=== PATIENT | female | born 1990 | race African-American/Black ===

== ENCOUNTER 2017-01-05 16:06 | Emergency (ER) | payer OTHER ==
[~2017-01-05] VITALS: Ht 149.9 cm; Wt 68.0 kg
[~2017-01-05 16:06] MED LIST: OFLO5DRO OD
[2017-01-05 16:35] VITALS: BP 142/105
--- NOTE | 2017-01-05 17:32 | PHYS DOC ---
Past Medical History Past Medical History: No Pertinent History, Arrhythmia Past Surgical History: , Tubal ligation Additional Past Surgical Histo: c section x4 Smoking: Less than 1pk/day Alcohol Use: None Drug Use: None Adult General Chief Complaint Chief Complaint: COUGH HPI HPI Patient is a 26 year old female who presents with sore throat for 1 week. She has also had nonproductive cough, nasal congestion, and subjective fever. She denies ear pain, shortness of breath, nausea, or vomiting. The patient also complains of pain in the right wrist starting last night. She denies any known injury. She does a lot of repetitive motions at her job. She does not have a PCP. Review of Systems Review of Systems Constitutional: Reports subjective fever. Eyes: Denies change in visual acuity, redness, or eye pain. [] HENT: Denies ear pain. Reports sore throat and nasal congestion. Respiratory: Denies shortness of breath. Reports nonproductive cough. Cardiovascular: Denies chest pain, palpitations or edema. [] GI: Denies abdominal pain, nausea, vomiting, bloody stools or diarrhea. [] Musculoskeletal: Denies back pain. Reports right wrist pain. Integument: Denies rash or skin lesions. [] Neurologic: Denies headache, focal weakness or sensory changes. [] Allergies Allergies Allergies Coded Allergies Type Severity Reaction Last Updated Verified No Known Drug Allergies 12/02/13 No Physical Exam Physical Exam Constitutional: Well developed, well nourished, no acute distress, non-toxic appearance. [] HENT: Normocephalic, atraumatic, bilateral external ears normal, oropharynx moist, no oral exudates, nose normal. Bilateral TMs without erythema or bulging. There is mild posterior pharyngeal erythema with mild bilateral tonsillar edema. There is no peritonsillar abscess or uvular deviation. Bilateral nasal turbinates are swollen and erythematous. Eyes: PERRLA, EOMI, conjunctiva normal, no discharge. [] Neck: Normal range of motion, no tenderness, supple, no stridor. [] Cardiovascular: Heart rate regular rhythm, no murmur [] Lungs & Thorax: There are mild rhonchi in the left lung base without wheezes. No respiratory distress. Skin: Warm, dry, no erythema, no rash. [] Extremities: Right distal ulnar tenderness, no cyanosis, no clubbing, ROM intact , no edema. 2+ radial and ulnar pulses. Less than 2 second capillary refill. Light touch sensation intact distally. Neurologic: Alert and oriented X 3, normal motor function, normal sensory function, no focal deficits noted. [] Psychologic: Affect normal, judgement normal, mood normal. [] Current Patient Data Vital Signs Vital Signs Date Time Temp Pulse Resp B/P Pulse Ox O2 Delivery O2 Flow Rate FiO2 01/05/17 16:35 98.3 83 20 97 Room Air 98.3 Lab Values Laboratory Tests Test 01/05/17 14:43 01/05/17 17:42 Influenza Type A Antigen Negative (NEGATIVE) Influenza Type B Antigen Negative (NEGATIVE) POC Urine HCG, Qualitative Hcg negative (Negative) EKG EKG [] Radiology/Procedures Radiology/Procedures PA and lateral chest xray reviewed and interpreted by myself with Dr. Cutler. There are no focal infiltrates to suggest pneumonia. 3 view xray of the right wrist reviewed and interpreted by myself with Dr. Cutler. There are no acute fractures or dislocations. Course & Med Decision Making Course & Med Decision Making Pertinent Labs and Imaging studies reviewed. (See chart for details) The patient presents with cough and URI symptoms for 1 week and atraumatic right wrist pain starting yesterday. Flu and strep swabs were negative. Chest x- ray does not show pneumonia. There is no fracture or dislocation seen on the right wrist x-ray patient is discharged home with a Velcro wrist brace. She is given prescriptions for albuterol inhaler, prednisolone, and Phenergan with codeine cough syrup. Return precautions were discussed. She verbalizes understanding and agrees with plan. Dragon Disclaimer Dragon Disclaimer This electronic medical record was generated, in whole or in part, using a voice recognition dictation system. Departure Departure Impression: Primary Impression: Bronchitis Additional Impression: Right wrist sprain Disposition: 01 HOME, SELF-CARE Condition: STABLE Referrals: DENYS GUTIERREZ II, MD Patient Instructions: Acute Bronchitis, [id number], Wrist Pain, [id number] Additional Instructions: Your flu and strep swabs were negative. You do not appear to have pneumonia. There are no broken bones on your wrist x-ray. Please wear the provided wrist brace to help decrease movement of your wrist to help her pain. Please complete all the prescribed steroid medication, even if you're feeling better. Please use the prescribed inhaler as needed for cough or shortness of breath. Do not use more often than directed. Do not drive or operate heavy machinery while taking cough syrup medication. Please follow-up with the orthopedic doctor listed below if your wrist pain continues. Return to the emergency department if you have any new or concerning symptoms. Scripts Promethazine Hcl/Codeine (Promethazine-Codeine Syrup)118 Ml Syrup5 Ml PO Q4- 6HRS #120 ML Prov:CLAYTON GUZMAN 01/05/17 Prednisolone Sod Phosphate (Prednisolone Sodium Phosphate)15 Mg/5 Ml Solution5 Ml PO TID 5 Days Prov:CLAYTON GUZMAN 01/05/17 Albuterol Sulfate (Proair Hfa Inhaler)8.5 Gm Hfa.[id number].[id number] Puff INH Q4HRS PRN SHORTNESS OF BREATH #1 INHALER Prov:CLAYTON GUZMAN 01/05/17 Problem Qualifiers Additional Impression: Right wrist sprain Encounter type: initial encounter Qualified Code: S63.501A - Unspecified sprain of right wrist, initial encounter CLAYTON GUZMAN Jan 05, 2017 17:32
[2017-01-05 17:42] LABS: OBC FLU VALID
[2017-01-05] MEDS ORDERED: PROM118S2 PO (18:17)
[2017-01-05] MEDS ORDERED: PROAIR HFA8.5 GM INH (18:17)
[2017-01-05] MEDS ORDERED: PRED15SO3 PO (18:17)
[2017-01-06 07:13] LABS: NEGATIVE OBC STREP NEG; POSITIVE OBC STREP POS
--- NOTE | 2017-01-06 08:31 | RAD ---
Right wrist, 3 views, 01/05/2017: History: Pain and swelling No fracture or or dislocation is evident. No destructive bony lesion is seen. There appears to be mild soft tissue swelling about the wrist. IMPRESSION: No acute bony abnormality is detected.
--- NOTE | 2017-01-06 08:32 | RAD ---
Chest, 2 views, 01/05/2017: History: Cough, fever, shortness of breath The heart size and pulmonary vascularity are normal. No pulmonary infiltrates are seen. There is no evidence of pleural fluid. IMPRESSION: No acute cardiopulmonary abnormality is detected.
== END 2017-01-05 18:25 | disposition home or self-care (01) ==
LOC: ER 16:06
DX: J40 Bronchitis, not specified as acute or chronic (principal); S63.501A Unspecified sprain of right wrist, initial encounter; F17.200 Nicotine dependence, unspecified, uncomplicated; X58.XXXA Exposure to other specified factors, initial encounter; Y93.89 Activity, other specified; Y92.89 Other specified places as the place of occurrence of the external cause; Y99.8 Other external cause status
CPT/HCPCS: 29125; 71020; 73110; 81025; 87070; 87804; 87880; 99285-25

== ENCOUNTER 2017-10-10 15:49 | Emergency (ER) | payer SELFPAY ==
[~2017-10-10] VITALS: Ht 149.9 cm; Wt 72.6 kg
[~2017-10-10 15:49] MED LIST changes: +PRED15SO3 PO; +PROAIR HFA8.5 GM INH; +PROM118S2 PO
[2017-10-10 15:55] VITALS: BP 158/106
[2017-10-10] MEDS: FLUORESCEIN OPHTH TEST STRIP. OS ONE (16:31)
[2017-10-10] MEDS: TETRACAINE 0.5% OPHTH SOLUTION 4ML BOTTLE. OS ONE (16:32)
[2017-10-10] MEDS ORDERED: TOBR5DRO2 OS (16:49)
--- NOTE | 2017-10-10 17:34 | PHYS DOC ---
Past Medical History Past Medical History: Arrhythmia Past Surgical History: , Tubal ligation Additional Past Surgical Histo: c section x4 Alcohol Use: None Drug Use: None Adult General Chief Complaint Chief Complaint: EYE PROBLEMS HPI HPI Patient is a 27 year old female who presents with erythema, itching and pain to the left eye. She states that it is sensitive to light. It is watering profusely and she states that she did have some discharge to the eye. 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 Review of Systems Review of Systems Constitutional: Denies fever or chills [] Eyes: See history of present illness HENT: Denies nasal congestion or sore throat [] Respiratory: Denies cough or shortness of breath [] Cardiovascular: No additional information not addressed in HPI [] Integument: Denies rash or skin lesions [] Neurologic: Denies headache, focal weakness or sensory changes [] All other systems were reviewed and found to be within normal limits, except as documented in this note. Current Medications Current Medications Current Medications Medications (Trade) Dose Ordered Sig/Yazmin Start Time Stop Time Status Last Admin Dose Admin Fluorescein Sodium (Ful-Kanika) 1 strip 1X ONCE 10/10/17 16:30 10/10/17 16:31 DC 10/10/17 16:31 1 STRIP Tetracaine HCl (Tetracaine) 1 drop 1X ONCE 10/10/17 16:30 10/10/17 16:31 DC 10/10/17 16:32 1 DROP Allergies Allergies Allergies Coded Allergies Type Severity Reaction Last Updated Verified No Known Drug Allergies 12/02/13 No Physical Exam Physical Exam Constitutional: Well developed, well nourished, no acute distress, non-toxic appearance. [] HENT: Normocephalic, atraumatic, bilateral external ears normal, oropharynx moist, no oral exudates, nose normal. [] Eyes: PERRLA, EOMI, conjunctiva erythematous to left only, using a Knox lamp there was no uptake noted of full glow, Jr-Pen measurements were an average of 5 Neck: Normal range of motion, no tenderness, supple, no stridor. [] Cardiovascular:Heart rate regular rhythm, no murmur [] Lungs & Thorax: Bilateral breath sounds clear to auscultation [] Neurologic: Alert and oriented X 3, normal motor function, normal sensory function, no focal deficits noted. [] Psychologic: Affect normal, judgement normal, mood normal. [] Current Patient Data Vital Signs Vital Signs Date Time Temp Pulse Resp B/P (MAP) Pulse Ox O2 Delivery O2 Flow Rate FiO2 10/10/17 15:55 98.2 75 16 99 Room Air 98.2 EKG EKG [] Radiology/Procedures Radiology/Procedures [] Course & Med Decision Making Course & Med Decision Making Pertinent Labs and Imaging studies reviewed. (See chart for details) []1. Conjunctivitis Patient was placed on TobraDex. She is to use the eyedrops as prescribed. If her eye worsens she is to return to the emergency department immediately or follow-up with ophthalmology. She is to see ophthalmology in 2-3 days if this issue has not resolved for reevaluation. Dragon Disclaimer Dragon Disclaimer This electronic medical record was generated, in whole or in part, using a voice recognition dictation system. Departure Departure Impression: Primary Impression: Conjunctivitis Disposition: 01 HOME, SELF-CARE Condition: STABLE Patient Instructions: Conjunctivitis (Viral and Bacterial) Additional Instructions: If not resolving within 2 days' please follow-up with ophthalmology. If worsening return to the ED immediately. Please use the eyedrops as directed. Scripts Tobramycin/Dexamethasone (TOBRADEX EYE DROPS) 5 Ml Drops.susp 1 DROP OS QID for 7 Days, #5 ML Prov: ALMA ROSA COOL APRN 10/10/17 ALMA ROSA COOL APRN Oct 10, 2017 17:34
== END 2017-10-10 16:52 | disposition home or self-care (01) ==
LOC: ER 15:49
DX: H10.9 Unspecified conjunctivitis (principal)
CPT/HCPCS: 99283

== ENCOUNTER 2017-11-10 20:25 | Emergency (ER) | payer SELFPAY | END 2017-11-10 21:00 | disposition home or self-care (01) | LOC: ER 20:25 | DX: S39.012A Strain of muscle, fascia and tendon of lower back, initial encounter (principal); X50.3XXA Overexertion from repetitive movements, initial encounter; Y93.89 Activity, other specified; Y92.89 Other specified places as the place of occurrence of the external cause; Y99.0 Civilian activity done for income or pay | CPT/HCPCS: 99283 ==

== ENCOUNTER 2018-02-19 07:34 | Emergency (ER) | payer SELFPAY ==
[2018-02-19 08:18] LABS: URINE HCG POC HCG NEGATIVE (Negative)
[2018-02-19] MEDS: ONDANSETRON PF 4 MG/2 ML VIAL. IV (08:30)
[2018-02-19] MEDS: IV NORMAL SALINE 1000ML BAG 1,000 ML IV (08:31)
[2018-02-19] MEDS: KETOROLAC 30 MG/ML INJ. IV (08:31)
== END 2018-02-19 09:17 | disposition home or self-care (01) ==
LOC: ER 09:17
DX: I10 Essential (primary) hypertension (principal); K04.7 Periapical abscess without sinus; K02.9 Dental caries, unspecified; Z98.51 Tubal ligation status
CPT/HCPCS: 81025; 96361; 96374; 96375; 99284-25; J1885; J2405; J7030

== ENCOUNTER 2018-03-29 09:24 | Emergency (ER) | payer SELFPAY | END 2018-03-29 10:38 | disposition home or self-care (01) | LOC: ER 09:24 | DX: M77.8 Other enthesopathies, not elsewhere classified (principal); M79.641 Pain in right hand; F17.210 Nicotine dependence, cigarettes, uncomplicated; Z95.1 Presence of aortocoronary bypass graft | CPT/HCPCS: 73130; 99284 ==